=== PATIENT | female | born 1945 | race Caucasian/White ===

== ENCOUNTER 2022-03-30 07:27 | Day surgery (SDC) | payer MEDICARE ==
[2022-03-25 15:51] VITALS: BMI 29.2
[~2022-03-30 07:27] MED LIST: LACTATED RINGERS 1,000 ML IV SCH; LIDOCAINE 1% (10MG/ML) FOR IV START INTRADERMA PRN
[2022-03-30 07:49] VITALS: TEMP 97.7
[2022-03-30 08:02] LABS: Glucose,Whole Blood 93 mg/dL (70-110)
[2022-03-30] MEDS ORDERED: PROPOFOL 10 MG/ML 20 ML VIAL IV ONE (08:35)
--- NOTE | 2022-03-30 08:37 | P.GSHP ---
History of Present Illness H&P Date: 03/30/22 Chief Complaint: screening 76-year-old female here today for colonoscopy. Last colonoscopy 8 years ago. That study was normal. No bowel complaints. Past Medical History Past Medical History: Diabetes Mellitus, Hyperlipidemia, Hypertension Additional Past Medical History / Comment(s): loose stools, History of Any Multi-Drug Resistant Organisms: None Reported Past Surgical History: Breast Surgery, Hysterectomy, Tonsillectomy, Tubal Ligation Additional Past Surgical History / Comment(s): LEFT BREAST BIOPSY Past Anesthesia/Blood Transfusion Reactions: No Reported Reaction Smoking Status: Never smoker - Past Family History Father Family Medical History: Cancer Additional Family Medical History / Comment(s): stomach Daughter(s) Family Medical History: Deep Vein Thrombosis (DVT) Medications and Allergies Home Medications Medication Instructions Recorded Confirmed Type FLUoxetine HCL [PROzac] 20 mg PO DAILY 05/16/14 03/30/22 History Insulin Glargine [Lantus] 50 unit SQ HS 05/16/14 03/30/22 History Lisinopril [Zestril] 40 mg PO QA 05/16/14 03/30/22 History hydroCHLOROthiazide [Hydrodiuril] 50 mg PO DAILY 05/16/14 03/30/22 History Atorvastatin [Lipitor] 20 mg PO HS 03/25/22 03/30/22 History Calcium Carbonate [Calcium] 600 mg PO DAILY 03/25/22 03/30/22 History Cholecalciferol [Vitamin D3 (25 50 mcg PO DAILY 03/25/22 03/30/22 History Mcg = 1000 Iu)] Dulaglutide [Trulicity] 1.5 mg SQ FR 03/25/22 03/30/22 History Ferrous Sulfate [Feosol] 325 mg PO DAILY 03/25/22 03/30/22 History Multivitamin/Iron/Folic Acid 1 each PO DAILY 03/25/22 03/30/22 History [Centrum Women Tablet] Vit C/E/Zn/Coppr/Lutein/Zeaxan 1 each PO BID 03/25/22 03/30/22 History [Preservision Areds 2 Softgel] atenoloL [Tenormin] 100 mg PO DAILY 03/25/22 03/30/22 History metFORMIN HCL 750 mg PO BID 03/25/22 03/30/22 History Allergies Allergy/AdvReac Type Severity Reaction Status Date / Time No Known Allergies Allergy Verified 03/30/22 07:43 Surgical - Exam Vital Signs Temp Pulse Resp BP Pulse Ox 97.7 F 66 18 188/85 96 03/30/22 07:41 03/30/22 07:41 03/30/22 07:41 03/30/22 07:41 03/30/22 07:41 Physical exam: General: Well-developed, well-nourished HEENT: Normocephalic, sclerae nonicteric Abdomen: Nontender, nondistended Extremities: No edema Neuro: Alert and oriented Assessment and Plan (1) Colon cancer screening Narrative/Plan: Will proceed with colonoscopy at this time Current Visit: No Status: Acute Code(s): Z12.11 - ENCOUNTER FOR SCREENING FOR MALIGNANT NEOPLASM OF COLON SNOMED Code(s): 629913624
--- NOTE | 2022-03-30 08:51 | P.PCN ---
Date of Procedure: 03/30/22 Procedure(s) Performed: PREOPERATIVE DIAGNOSIS: Colon cancer screening POSTOPERATIVE DIAGNOSIS: Diverticulosis PROCEDURE: Colonoscopy ANESTHESIA: MAC SURGEON: Kirit Rider M.D. SPECIMENS: None ENDOSCOPIC PROCEDURE: The patient was placed on the endoscopy table in the left decubitus position. The Olympus colonoscope was inserted into the anus and passed under direct visualization to the base of the cecum. The appendiceal orifice was visualized. From that point the scope was slowly withdrawn inspe cting all surfaces carefully. There were no neoplastic inflammatory or polypoid lesions throughout the cecum, ascending, transverse, descending, sigmoid and rectum. There was mild scattered diverticulosis noted. Digital rectal examination was normal. The patient was taken to the recovery room in stable condition per anesthesia guidelines. RECOMMENDATIONS: Resume diet. Follow colonoscopy in 10 years.
[2022-03-30 09:04] VITALS: RESP 16
[2022-03-30 09:09] VITALS: BP 138/82; PULSE 63
== END 2022-03-30 09:35 | disposition home or self-care (01) ==
LOC: ORWHC2ENDO 07:27
PROVIDERS: ATTEND Surgery
DX: Z12.11 Encounter for screening for malignant neoplasm of colon (principal); K57.30 Diverticulosis of large intestine without perforation or abscess without bleeding; E11.9 Type 2 diabetes mellitus without complications; E78.5 Hyperlipidemia, unspecified; I10 Essential (primary) hypertension; F32.A Depression, unspecified; Z90.710 Acquired absence of both cervix and uterus; Z98.51 Tubal ligation status; Z98.890 Other specified postprocedural states; Z80.0 Family history of malignant neoplasm of digestive organs; Z82.49 Family history of ischemic heart disease and other diseases of the circulatory system; Z79.4 Long term (current) use of insulin; Z79.899 Other long term (current) drug therapy; Z79.84 Long term (current) use of oral hypoglycemic drugs; M19.90 Unspecified osteoarthritis, unspecified site
CPT/HCPCS: J2704; G0121; 45378

== ENCOUNTER → 2023-11-30 | Outpatient (CLI) | payer MEDICARE ==
--- NOTE | 2023-11-30 14:38 | XR ---
EXAMINATION TYPE: XR chest 2V DATE OF EXAM: 11/30/2023 12:12 PM CLINICAL INDICATION:Female, 78 years old with history of R61 GENERALIZED HYPERHIDROSIS; COMPARISON: None TECHNIQUE: XR chest 2V Frontal and lateral views of the chest. FINDINGS: Lungs/Pleura: There is no evidence of pleural effusion, focal consolidation, or pneumothorax. Pulmonary vascularity: Unremarkable. Heart/mediastinum: Cardiomediastinal silhouette is unremarkable. Musculoskeletal: No acute osseous pathology. Other findings: None IMPRESSION: No acute cardiopulmonary disease/process.
== END | disposition home or self-care (01) ==
LOC: RADXRMAIN 11:44
PROVIDERS: ATTEND Family Medicine
DX: R61 Generalized hyperhidrosis (principal)
CPT/HCPCS: 71046